=== PATIENT | female | born 1970 ===

== ENCOUNTER 2019-04-03 11:41 | Emergency (ER) | payer BC ==
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
[2019-04-03 12:10] VITALS: BP 165/87
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
== END 2019-04-03 14:58 | disposition home or self-care (01) ==
LOC: ED 11:41
DX: M47.812 Spondylosis without myelopathy or radiculopathy, cervical region (principal); F12.10 Cannabis abuse, uncomplicated; Z98.890 Other specified postprocedural states; Z88.5 Allergy status to narcotic agent
CPT/HCPCS: 72125